=== PATIENT | male | born 1995 | race Caucasian/White ===

== ENCOUNTER 2018-09-02 08:57 | Emergency (ER) | payer SELFPAY ==
--- OUTSIDE RECORDS SUMMARY | 2018-09-02 08:59 | XMS REPORT ---
:1995 [facility] [address] [place] [address] Care Team Providers Name Role Phone TERESA CARY Unavailable Unavailable Problems This patient has no known problems. Allergies, Adverse Reactions, Alerts This patient has no known allergies or adverse reactions. Medications This patient has no known medications. Encounters Start End Encounter Admission Attending Care Care Encounter Date/Time Date/Time Type Type Clinicians Facility Department ID 2016-12-27 2016-12-31 Inpatient 2 PRIYANK CARY [facility] [id number] 07:29:00 13:00:00 TERESA Results Test Description Test Time Test Comments Text Results Atomic Results Result Comments SYPHILIS (T. PALLIDUM) SCREEN 2018-03-01 07:16:00 Test Item Value Reference Range Comments SCRN SYP (test code=SCRN SYP) NONREACTIVE NONREACTIVE Spyhilis IGG is a screening test only. All REACTIVE results miley be confirmed by additional testing. ER SCREEN FOR HIV 13:36:00 Test Item Value Reference Range Comments HIV 1/2 AB (test NONREACTIVE NONREACTIVE This test is used for SCREENING code=SCRN HIV) purposes only. All reactive results are prelimenary and confirmation results will follow. HEPATITIS C ANTIBODY [id number] 13:36:00 Test Item Value Reference Range Comments SCRN HCV (test code=SCRN NEGATIVE NEGATIVE Hepatitis C Antibody test is for HCV) screening purposes only. All reactives will be confirmed by additional testing. % HEMOGLOBIN A1C (GLYCATED)2018-02-25 08:14:00 Test Item Value Reference Range Comments HEMOGLOBIN A1C (test 5.5 % 0-6 THERAPEUTIC TARGET FOR THE code=GLYCO-) TREATMENT OF DIABETES MELLITUS PATIENTS IS < 7% HBA1C. [employer] DIABETES CARE 2002;25:S33-S49 LIPID [id number] 08:12:00 Test Item Value Reference Range Comments CHOLEST (test code=CHOLEST) 154 MG/DL 0-200 TRIGLYCE (test code=TRIGLYCE) 91 MG/DL 0-150 HDL (test code=HDL) 68 MG/DL 30-65 NEGATIVE RISK FACTOR FOR HEART DISEASE IF HDL >/=60 mg/dl MAJOR RISK FACTOR FOR HEART DISEASE IF HDL <40 mg/dL CALC LDL (test code=CALC LDL) 68 MG/DL <100 HEPATITIS C ANTIBODY [id number] 10:10:00 Test Item Value Reference Range Comments SCRN HCV (test code=SCRN NEGATIVE NEGATIVE Hepatitis C Antibody test is for HCV) screening purposes only. All reactives will be confirmed by additional testing. ER SCREEN FOR HIV 21:37:00 Test Item Value Reference Range Comments HIV 1/2 AB (test NONREACTIVE NONREACTIVE This test is used for SCREENING code=SCRN HIV) purposes only. All reactive results are prelimenary and confirmation results will follow. SYPHILIS (T. PALLIDUM)2016-12-29 18:44:00 Test Item Value Reference Range Comments SYPHIGG (test code=SYPHIGG) NONREACTIVE NONREACTIVE Spyhilis IGG is a screening test only. All REACTIVE results miley be confirmed by additional testing. LIPID [id number] 08:55:00 Test Item Value Reference Range Comments CHOLEST (test code=CHOLEST) 144 MG/DL 0-200 TRIGLYCE (test code=TRIGLYCE) 83 MG/DL 0-150 HDL (test code=HDL) 45 MG/DL 30-65 NEGATIVE RISK FACTOR FOR HEART DISEASE IF HDL >/=60 mg/dl MAJOR RISK FACTOR FOR HEART DISEASE IF HDL <40 mg/dL CALC LDL (test code=CALC LDL) 82 MG/DL <100 [id number] 08:55:00 Test Item Value Reference Range Comments K+ (test code=KSERUM) 4.1 MMOL/L 3.5-5.1 PLEASE NOTE NEW REFERENCE RANGE(S) IN EFFECT EFFECTIVE 06/20/2010 - NEW ANALYZER (XP [employer] [id number]) % HEMOGLOBIN A1C (GLYCATED)2016-12-28 08:55:00 Test Item Value Reference Range Comments HEMOGLOBIN A1C (test 5.5 % 0-6 THERAPEUTIC TARGET FOR THE code=GLYCO-) TREATMENT OF DIABETES MELLITUS PATIENTS IS < 7% HBA1C. [employer] DIABETES CARE 2002;25:S33-S49
[2018-09-02] MEDS ORDERED: ONDANSETRON 4 MG (ODT) TAB ONE (09:30)
[2018-09-02 10:49] LABS: Urine Blood NEGATIVE (NEG); Urine Glucose NEGATIVE (NEG); Urine Protein NEGATIVE (NEG); Urine pH 6.5 (5.0-7.0)
--- NOTE | 2018-09-02 10:51 | ER ---
Nurse's Notes [facility] Name: Corbin Marie Age: 23 yrs Sex: Male : 1995 Arrival Date: 09/02/2018 Time: 09:00 Bed 7 Private MD: None, None Diagnosis: Vomiting Presentation: 09/02 09:12 Presenting complaint: Patient states: vomiting and subjective fever that began ss yesterday. Pt thinks he may have a "stomach virus". Transition of care: patient was not received from another setting of care. Onset of symptoms was September 01, 2018. Risk Assessment: Do you want to hurt yourself or someone else? Patient reports no desire to harm self or others. Initial Sepsis Screen: Does the patient meet any 2 criteria? No. Patient's initial sepsis screen is negative. Does the patient have a suspected source of infection? No. Patient's initial sepsis screen is negative. Care prior to arrival: None. 09:12 Method Of Arrival: Ambulatory ss 09:12 Acuity: RUSLAN 3 ss Historical: - Allergies: 09:14 No Known Allergies; ss - Home Meds: 09:14 None [Active]; ss - PMHx: 09:14 None; ss - PSHx: 09:14 Hernia repair; ss - Immunization history:: Adult Immunizations unknown. - Social history:: Smoking status: Patient uses tobacco products, smokes one pack cigarettes per day. chewing tobacco. - Ebola Screening: : Patient denies exposure to infectious person Patient denies travel to an Ebola-affected area in the 21 days before illness onset. Screenin:43 Abuse screen: Denies threats or abuse. Denies injuries from another. Nutritional sg screening: No deficits noted. Tuberculosis screening: No symptoms or risk factors identified. Never had TB. Fall Risk None identified. Assessment: 09:43 General: Appears in no apparent distress. comfortable, slender, well groomed, well sg developed, well nourished, Behavior is calm, cooperative, appropriate for age. Pain: Complains of pain in abdomen. Neuro: No deficits noted. Cardiovascular: Patient's skin is warm and dry. Respiratory: Respiratory effort is even, unlabored, Respiratory pattern is regular, symmetrical. GI: Abdomen is flat, non-distended, Bowel sounds present X 4 quads. Abd is soft and non tender X 4 quads. Reports nausea, normal bowel habits, vomiting. : No signs and/or symptoms were reported regarding the genitourinary system. EENT: Nares are clear bilaterally Throat is reddened. Derm: Skin is pink, warm \\T\\ dry. Musculoskeletal: Capillary refill is brisk, in bilateral fingers. Swelling absent. 10:44 Reassessment: Patient appears in no apparent distress at this time. pt reports he has sg been drinking coke since diallo been here, Ramila COOPERP notified. 11:02 Reassessment: Patient appears in no apparent distress at this time. Patient and/or iw family updated on plan of care and expected duration. Pain level reassessed. Patient is alert, oriented x 3, equal unlabored respirations, skin warm/dry/pink. Vital Signs: 09:16 BP 131 / 83; Pulse 100; Resp 16; Temp 98.6(O); Pulse Ox 100% on R/A; Weight 77.11 kg; ss Height 5 ft. 11 in. (180.34 cm); Pain 4/10; 11:02 BP 125 / 84; Pulse 89; Resp 16; Pulse Ox 100% on R/A; iw 09:16 Body Mass Index 23.71 (77.11 kg, 180.34 cm) ED Course: 09:00 Patient arrived in ED. mr 09:00 None, None is Private Physician. mr 09:02 Daja Wayne, JASON-Kirk [facility]. kb 09:02 Lester Tate MD is Attending Physician. kb 09:13 Triage completed. ss 09:14 Arm band placed on right wrist. ss 09:22 Nirav Michel, RN is Primary Nurse. sg 09:39 Flu and/or RSV swab sent to lab. Strep swab sent to lab. sg 10:18 Throat Culture Sent. sg 11:02 Patient has correct armband on for positive identification. iw 11:02 No provider procedures requiring assistance completed. Patient did not have IV access iw during this emergency room visit. Administered Medications: 09:39 Drug: Zofran 4 mg Route: PO; sg Outcome: 10:51 Discharge ordered by . kb 11:02 Discharged to home ambulatory, with family. iw 11:02 Condition: good 11:02 Discharge instructions given to patient, Instructed on discharge instructions, follow up and referral plans. Demonstrated understanding of instructions, follow-up care. 11:04 Patient left the ED. iw Signatures: Daja Wayne, JASON-C MEETING FACILITATOR-Nirav Baez RN RN [facility] mr Clair Chacko RN RN iw Smirch, Shelby, RN RN ss Corrections: (The following items were deleted from the chart) 09:17 09:14 3.9 kg; ss ss
--- NOTE | 2018-09-02 10:51 | EDPHYS ---
Physician Documentation [facility] Name: Corbin Marie Age: 23 yrs Sex: Male : 1995 Arrival Date: 09/02/2018 Time: 09:00 Bed 7 Private MD: None, None ED Physician Lester Tate HPI: 09/02 11:04 This 23 yrs old Male presents to ER via Ambulatory with complaints of kb Vomiting. 11:06 The patient presents to the emergency department with vomiting. Onset: The kb symptoms/episode began/occurred last night. Possible causes: unknown. The symptoms are aggravated by nothing. The symptoms are alleviated by nothing. Associated signs and symptoms: Pertinent positives: fever, nausea, vomiting. Severity of symptoms: At their worst the symptoms were mild in the emergency department the symptoms have improved. The patient has not experienced similar symptoms in the past. The patient has not recently seen a physician. Historical: - Allergies: 09:14 No Known Allergies; ss - Home Meds: :14 None [Active]; ss - PMHx: :14 None; ss - PSHx: 09:14 Hernia repair; ss - Immunization history:: Adult Immunizations unknown. - Social history:: Smoking status: Patient uses tobacco products, smokes one pack cigarettes per day. chewing tobacco. - Ebola Screening: : Patient denies exposure to infectious person Patient denies travel to an Ebola-affected area in the 21 days before illness onset. ROS: 11:07 ENT: Negative for injury, pain, and discharge, Neck: Negative for injury, pain, and kb swelling, Cardiovascular: Negative for chest pain, palpitations, and edema, Respiratory: Negative for shortness of breath, cough, wheezing, and pleuritic chest pain, Back: Negative for injury and pain, MS/Extremity: Negative for injury and deformity, Skin: Negative for injury, rash, and discoloration, Neuro: Negative for headache, weakness, numbness, tingling, and seizure. 11:07 Constitutional: Positive for body aches, chills, fever, Negative for fatigue, malaise, poor PO intake, weight loss. 11:07 Abdomen/GI: Positive for nausea and vomiting, Negative for abdominal pain. Exam: 11:08 Constitutional: This is a well developed, well nourished patient who is awake, alert, kb and in no acute distress. Head/Face: Normocephalic, atraumatic. ENT: Nares patent. No nasal discharge, no septal abnormalities noted. Tympanic membranes are normal and external auditory canals are clear. Oropharynx with no redness, swelling, or masses, exudates, or evidence of obstruction, uvula midline. Mucous membranes moist. Neck: Trachea midline, no thyromegaly or masses palpated, and no cervical lymphadenopathy. Supple, full range of motion without nuchal rigidity, or vertebral point tenderness. No Meningismus. Chest/axilla: Normal chest wall appearance and motion. Nontender with no deformity. No lesions are appreciated. Cardiovascular: Regular rate and rhythm with a normal S1 and S2. No gallops, murmurs, or rubs. Normal PMI, no JVD. No pulse deficits. Respiratory: Lungs have equal breath sounds bilaterally, clear to auscultation and percussion. No rales, rhonchi or wheezes noted. No increased work of breathing, no retractions or nasal flaring. Abdomen/GI: Soft, non-tender, with normal bowel sounds. No distension or tympany. No guarding or rebound. No evidence of tenderness throughout. Skin: Warm, dry with normal turgor. Normal color with no rashes, no lesions, and no evidence of cellulitis. MS/ Extremity: Pulses equal, no cyanosis. Neurovascular intact. Full, normal range of motion. Neuro: Awake and alert, GCS 15, oriented to person, place, time, and situation. Cranial nerves II-XII grossly intact. Motor strength 5/5 in all extremities. Sensory grossly intact. Cerebellar exam normal. Normal gait. Vital Signs: 09:16 BP 131 / 83; Pulse 100; Resp 16; Temp 98.6(O); Pulse Ox 100% on R/A; Weight 77.11 kg; ss Height 5 ft. 11 in. (180.34 cm); Pain 4/10; 11:02 BP 125 / 84; Pulse 89; Resp 16; Pulse Ox 100% on R/A; iw 09:16 Body Mass Index 23.71 (77.11 kg, 180.34 cm) ss MDM: 09:05 Patient medically screened. kb 10:50 Data reviewed: vital signs, nurses notes. Data interpreted: Pulse oximetry: on room air kb is 100 %. Interpretation: normal. Counseling: I had a detailed discussion with the patient and/or guardian regarding: the historical points, exam findings, and any diagnostic results supporting the discharge/admit diagnosis, lab results, the need for outpatient follow up, a family practitioner, to return to the emergency department if symptoms worsen or persist or if there are any questions or concerns that arise at home. ED course: Pt has ingested a 20oz bottle of coke since arrival. No vomiting since arrival. 09/02 09:22 Order name: Flu; Complete Time: 10:25 kb 09/02 09:22 Order name: Strep; Complete Time: 10:09 kb 09/02 09:22 Order name: Urine Dipstick-Ancillary (obtain specimen); Complete Time: 10:27 kb 09/02 10:07 Order name: Throat Culture EDMD 09/02 10:29 Order name: Urine Dipstick--Ancillary (enter results); Complete Time: 10:50 eb 09/02 10:38 Order name: PO challenge; Complete Time: 10:44 kb Administered Medications: 09:39 Drug: Zofran 4 mg Route: PO; sg Disposition: 15:59 Co-signature as Attending Physician, Lester Tate MD. rn Disposition: 09/02/18 10:51 Discharged to Home. Impression: Vomiting. - Condition is Stable. - Discharge Instructions: Nausea and Vomiting, Adult. - Medication Reconciliation Form, Thank You Letter, Antibiotic Education, Prescription Opioid Use, Work release form, Family Work Release form. - Follow up: Emergency Department; When: As needed; Reason: Worsening of condition. Follow up: Private Physician; When: 2 - 3 days; Reason: Recheck today's complaints, Continuance of care, Re-evaluation by your physician. Signatures: Dispatcher [employer] EDMS Daja Wayne, MONORAIL CAR OPERATOR-C MONORAIL CAR OPERATOR-Ckb Nirav Michel RN RN sg Clair Chacko RN RN iw Nieto, Roman, MD MD rn Smirch, Shelby, RN RN ss Corrections: (The following items were deleted from the chart) 11:04 10:51 09/02/2018 10:51 Discharged to Home. Impression: Vomiting. Condition is Stable. iw Forms are Work release form, Medication Reconciliation Form, Thank You Letter, Antibiotic Education, Prescription Opioid Use. Follow up: Emergency Department; When: As needed; Reason: Worsening of condition. Follow up: Private Physician; When: 2 - 3 days; Reason: Recheck today's complaints, Continuance of care, Re-evaluation by your physician. kb
== END 2018-09-02 11:04 | disposition home or self-care (01) ==
LOC: ER 08:57
DX: R11.10 Vomiting, unspecified (principal); Z72.0 Tobacco use
CPT/HCPCS: 81003; 87070; 87081; 87804; 99283